=== PATIENT | male | born 1965 | race Caucasian/White ===

== ENCOUNTER 2018-06-06 20:29 | Inpatient (IN) | payer MEDICAID, OTHER ==
[2018-06-06 21:58] LABS: ADD MAN DIFF? NO
[2018-06-06 22:04] LABS: BASOPHILS % 0.2 % (0.0-2.0); EOSINOPHILS % 0.1 % (0.0-7.0); HEMATOCRIT 30.1 % (42.0-52.0); HEMOGLOBIN 10.5 g/dl (14.0-18.0); LYMPHOCYTES # 0.8 10^3/ul (0.8-2.9); LYMPHOCYTES % 7.7 % (15.0-51.0); MEAN CORPUSCULAR HEMOGLOBIN 28.4 pg (29.0-33.0); MEAN CORPUSCULAR HGB CONC 34.9 g/dl (32.0-37.0); MEAN CORPUSCULAR VOLUME 81.4 fl (82.0-101.0); MEAN PLATELET VOLUME 11.1 fl (7.4-10.4); MONOCYTE # 0.4 10^3/ul (0.3-0.9); MONOCYTES % 3.9 % (0.0-11.0); NEUTROPHIL # 9.2 10^3/ul (1.6-7.5); NEUTROPHILS % 87.3 % (39.0-77.0); PLATELET COUNT 199 10^3/UL (140-415); RED CELL DISTRIBUTION WIDTH 14.5 % (11.5-14.5)
[2018-06-06 22:04] LABS: WHITE BLOOD COUNT 10.6 10^3/ul (4.8-10.8)
[2018-06-06 22:21] LABS: ADD UMIC YES; UR ASCORBIC ACID NEGATIVE (NEGATIVE); UR BILIRUBIN (Dip) NEGATIVE (NEGATIVE); UR BLOOD (Dip) 2+ mg/dL (NEGATIVE); UR CLARITY SLIGHTLY CLOUDY (CLEAR); UR COLOR YELLOW (YELLOW); UR GLUCOSE (Dip) 3+ mg/dL (NEGATIVE); UR KETONES (Dip) 1+ mg/dL (NEGATIVE); UR LEUKOCYTE ESTERASE (Dip) NEGATIVE Leu/ul (NEGATIVE); UR MUCUS FEW /HPF (NONE SEEN); UR NITRITE (Dip) NEGATIVE (NEGATIVE); UR RBC 17 /HPF (0-5); UR SPECIFIC GRAVITY (Dip) 1.018 (1.003-1.030); UR TOTAL PROTEIN (Dip) 3+ mg/dl (NEGATIVE); UR UROBILINOGEN (Dip) NEGATIVE (NEGATIVE); UR WBC 6 /HPF (0-5)
[2018-06-06 22:23] LABS: ALANINE AMINOTRANSFERASE 28 IU/L (13-69); ALBUMIN 3.2 g/dl (3.3-4.9); ALBUMIN/GLOBULIN RATIO 1.18; ALKALINE PHOSPHATASE 171 IU/L (42-121); ANION GAP 16 (5-13); ASPARTATE AMINO TRANSFERASE 38 IU/L (15-46); BILIRUBIN,INDIRECT 0.2 mg/dl (0-1.1); BILIRUBIN,TOTAL 0.2 mg/dl (0.2-1.3); BLOOD UREA NITROGEN 68 mg/dl (7-20); CALCIUM 8.4 mg/dl (8.4-10.2); CARBON DIOXIDE 13 mmol/L (21-31); CHLORIDE 105 mmol/L (97-110); CREATININE 9.97 mg/dl (0.61-1.24); Estimated GFR 5 mL/min (>60); GLUCOSE 314 mg/dl (70-220); POTASSIUM 4.2 mmol/L (3.5-5.1); SODIUM 134 mmol/L (135-144); TOTAL PROTEIN 5.9 g/dl (6.1-8.1)
[2018-06-06 22:24] LABS: INR 1.01; PROTIME 13.4 Sec (11.9-14.9)
[2018-06-06 22:25] LABS: PARTIAL THROMBOPLASTIN TIME 26.4 Sec (23.0-35.0)
[2018-06-06 22:33] LABS: TROPONIN-I 0.035 ng/ml (0.000-0.120)
[2018-06-07] MEDS: ONDANSETRON 4 MG INJ IV ×2 (00:23→16:28)
[2018-06-07] MEDS: HYDROmorphONE 1 MG/ML SYG IV (00:24)
[2018-06-07] MEDS ORDERED: ONDANSETRON 4 MG INJ IV (00:30)
[2018-06-07] MEDS ORDERED: DEXTROSE 50% 50 ML SYRINGE IV ×2 (00:30)
[2018-06-07] MEDS ORDERED: GLUCOSE GEL 15 GRAM TUBE BUCCAL (00:30)
[2018-06-07] MEDS ORDERED: GLUCOSE GEL 15 GRAM TUBE PO ×2 (00:30)
[2018-06-07] MEDS ORDERED: morphine 2 MG INJ IV (00:30)
[2018-06-07] MEDS ORDERED: GLUCAGON 1 MG INJ IM (00:30)
[2018-06-07] MEDS ORDERED: ACETAMINOPHEN 325 MG TAB PO (00:30)
[2018-06-07] MEDS ORDERED: NACL 0.9% 3 ML SYG IV (00:30)
[2018-06-07] MEDS: FUROSEMIDE 40 MG INJ IV (00:35)
[2018-06-07] MEDS: ACCU-CHEK XX (01:41)
[2018-06-07] MEDS: INSULIN GLARGINE [LANTus] (100 UNITS/ML) SYG SC ×2 (01:41→20:32)
[2018-06-07] MEDS: PANTOPRAZOLE IV 80 MG in SOD CHLORIDE 0.9% 100 ML IV ×3 (01:44→20:33)
[2018-06-07] MEDS: PANTOPRAZOLE IV 80 MG in SOD CHLORIDE 0.9% 100 ML IVPB (01:44)
[2018-06-07 04:44] LABS: ADD UMIC YES; UR ASCORBIC ACID NEGATIVE (NEGATIVE); UR BACTERIA FEW /HPF (NONE SEEN); UR BILIRUBIN (Dip) NEGATIVE (NEGATIVE); UR BLOOD (Dip) 1+ mg/dL (NEGATIVE); UR CLARITY SLIGHTLY CLOUDY (CLEAR); UR COLOR YELLOW (YELLOW); UR GLUCOSE (Dip) 3+ mg/dL (NEGATIVE); UR KETONES (Dip) TRACE mg/dL (NEGATIVE); UR LEUKOCYTE ESTERASE (Dip) NEGATIVE Leu/ul (NEGATIVE); UR NITRITE (Dip) NEGATIVE (NEGATIVE); UR RBC 4 /HPF (0-5); UR SPECIFIC GRAVITY (Dip) 1.018 (1.003-1.030); UR TOTAL PROTEIN (Dip) 3+ mg/dl (NEGATIVE); UR UROBILINOGEN (Dip) NEGATIVE (NEGATIVE); UR WBC 3 /HPF (0-5)
[2018-06-07 04:45] LABS: SODIUM,URINE RANDOM 41 mmol/L (30-90)
[2018-06-07 04:49] LABS: CREATININE,URINE RANDOM 85.17 mg/dl (20-370)
[2018-06-07] MEDS: HEPARIN 5,000 UNIT/1 ML VIAL SC (05:13)
[2018-06-07 05:42] LABS: HAAIG REFLEX REFLEX FILED
[2018-06-07 06:24] LABS: IRON 77 ug/dl (35-150)
[2018-06-07 06:33] LABS: % IRON SATURATION 38 % SAT (22-52); TOTAL IRON BINDING CAPACITY 201 ug/dl (241-421)
[2018-06-07 06:58] LABS: HEPATITIS B SURFACE ANTIGEN NEGATIVE (NEGATIVE)
[2018-06-07 07:00] LABS: PROTEIN URINE > 600.0 mg/dl (0.0-11.9); PROTEIN/CREAT RATIO 7.04 RATIO
[2018-06-07 07:05] LABS: HIV 1&2 ANTIBODY NEGATIVE (NEGATIVE)
[2018-06-07 07:14] LABS: HEPATITIS B SURFACE ANTIBODY NEGATIVE (NEGATIVE)
[2018-06-07 07:15] LABS: HEPATITIS B CORE ANTIBODY NEGATIVE (NEGATIVE); HEPATITIS C VIRAL ANTIBODY NEGATIVE (NEGATIVE)
[2018-06-07] MEDS: hydrALAzine 20 MG INJ IV (07:50)
[2018-06-07 09:00] LABS: CHOLESTEROL 304 mg/dl (100-200)
[2018-06-07 09:00] LABS: CHOL/HDL RATIO 7.4 RATIO; HDL CHOLESTEROL 41 mg/dl (28-71); LDL CHOLESTEROL,CALCULATED 204 mg/dl; TRIGLYCERIDES 293 mg/dl (0-149)
[2018-06-07 09:08] LABS: HEMOGLOBIN A1C 8.2 % (0-5.9)
[2018-06-07] MEDS: NIFEdipine (XL) 60 MG TAB PO ×2 (09:53→20:25)
[2018-06-07] MEDS: METOLAZONE 2.5 MG TAB PO (09:55)
[2018-06-07] MEDS: INSULIN ASPART [NOVOLOG] 3 ML PEN SC ×6 (10:17→20:34)
[2018-06-07 11:02] LABS: HAAIG REFLEX REFLEX FILED
[2018-06-07 11:38] LABS: COMPLEMENT C3 76 mg/dl (88-165); COMPLEMENT C4 27 mg/dl (14-44)
[2018-06-07] MEDS ORDERED: INSULIN ASPART [NOVOLOG] 3 ML PEN SC (11:50)
[2018-06-07 12:01] LABS: HEPATITIS B SURFACE ANTIGEN NEGATIVE (NEGATIVE)
[2018-06-07 12:19] LABS: HEPATITIS B CORE ANTIBODY NEGATIVE (NEGATIVE); HEPATITIS C VIRAL ANTIBODY NEGATIVE (NEGATIVE)
[2018-06-07] MEDS: METOCLOPRAMIDE 10 MG INJ IV ×2 (13:00→17:38)
[2018-06-07 17:21] LABS: RHEUMATOID FACTOR NEGATIVE (NEGATIVE)
[2018-06-07 17:21] LABS: RAPID PLASMA REAGIN NONREACTIVE (NR)
[2018-06-07] MEDS: ATORVASTATIN 80 MG TAB PO (20:25)
[2018-06-07 21:57] LABS: SITE Left Upper Forearm
[2018-06-08] MEDS: METOCLOPRAMIDE 10 MG INJ IV ×4 (00:20→17:01)
[2018-06-08] MEDS: ACCU-CHEK XX ×2 (02:00)
[2018-06-08] MEDS: PANTOPRAZOLE IV 80 MG in SOD CHLORIDE 0.9% 100 ML IV ×2 (06:36→16:22)
[2018-06-08 07:03] LABS: ADD MAN DIFF? NO
[2018-06-08 07:07] LABS: BASOPHILS % 0.2 % (0.0-2.0); EOSINOPHILS % 0.5 % (0.0-7.0); LYMPHOCYTES # 1.4 10^3/ul (0.8-2.9); LYMPHOCYTES % 17.6 % (15.0-51.0); MEAN CORPUSCULAR HEMOGLOBIN 28.2 pg (29.0-33.0); MEAN CORPUSCULAR HGB CONC 34.6 g/dl (32.0-37.0); MEAN CORPUSCULAR VOLUME 81.5 fl (82.0-101.0); MEAN PLATELET VOLUME 12.1 fl (7.4-10.4); MONOCYTE # 0.6 10^3/ul (0.3-0.9); MONOCYTES % 7.3 % (0.0-11.0); NEUTROPHILS % 73.9 % (39.0-77.0); PLATELET COUNT 211 10^3/UL (140-415); RED BLOOD COUNT 3.19 10^6/ul (4.70-6.10); RED CELL DISTRIBUTION WIDTH 14.7 % (11.5-14.5)
[2018-06-08 07:07] LABS: WHITE BLOOD COUNT 8.1 10^3/ul (4.8-10.8)
[2018-06-08 07:30] LABS: ANION GAP 14 (5-13); BLOOD UREA NITROGEN 72 mg/dl (7-20); CALCIUM 7.8 mg/dl (8.4-10.2); CARBON DIOXIDE 13 mmol/L (21-31); CHLORIDE 111 mmol/L (97-110); CREATININE 10.47 mg/dl (0.61-1.24); Estimated GFR 5 mL/min (>60); GLUCOSE 91 mg/dl (70-220); MAGNESIUM 2.5 mg/dl (1.7-2.5); PHOSPHORUS 7.9 mg/dl (2.5-4.9); POTASSIUM 3.1 mmol/L (3.5-5.1); SODIUM 138 mmol/L (135-144)
[2018-06-08 07:32] LABS: LIPASE 43 U/L (23-300)
[2018-06-08] MEDS: INSULIN ASPART [NOVOLOG] 3 ML PEN SC ×7 (07:50→20:51)
[2018-06-08] MEDS: NIFEdipine (XL) 60 MG TAB PO ×2 (08:10→20:33)
[2018-06-08] MEDS: METOLAZONE 2.5 MG TAB PO (08:10)
[2018-06-08] MEDS: MULTIVIT/CA CARB/B CMPLX/FA TAB PO (09:00)
[2018-06-08] MEDS: CHOLECALCIFEROL 2,000 UNIT CAP PO (09:00)
[2018-06-08] MEDS: POTASSIUM CHLORIDE (SR) 20 MEQ TAB PO (09:08)
[2018-06-08] MEDS: CEFAZOLIN 1 GM/50 ML (PMX) 50 ML IVPB (11:13)
[2018-06-08] MEDS: SEVELAMER CARBONATE 800 MG TABLET PO ×2 (11:50→16:57)
[2018-06-08] MEDS: LIDOCAINE 1% (MDV) 20 ML INJ (11:51)
[2018-06-08] MEDS: FENTAnyl 50 MCG/ML VIAL (11:51)
[2018-06-08] MEDS: HEPARIN 1000 UNITS/ML 10 ML INJ (12:07)
[2018-06-08] MEDS: EPOETIN 10000 UNITS/1 ML INJ (ESRD) SC (16:55)
[2018-06-08] MEDS: HEPARIN 1000 UNITS/ML 10 ML INJ CATHETER (19:52)
[2018-06-08] MEDS: ATORVASTATIN 80 MG TAB PO (20:32)
[2018-06-08] MEDS: INSULIN GLARGINE [LANTus] (100 UNITS/ML) SYG SC (20:42)
[2018-06-09] MEDS: ACCU-CHEK XX (02:00)
[2018-06-09] MEDS: PANTOPRAZOLE IV 80 MG in SOD CHLORIDE 0.9% 100 ML IV (02:40)
[2018-06-09] MEDS: INSULIN ASPART [NOVOLOG] 3 ML PEN SC ×7 (07:55→21:11)
[2018-06-09] MEDS: METOLAZONE 2.5 MG TAB PO (08:13)
[2018-06-09] MEDS: MULTIVIT/CA CARB/B CMPLX/FA TAB PO (08:14)
[2018-06-09] MEDS: SEVELAMER CARBONATE 800 MG TABLET PO ×3 (08:14→17:26)
[2018-06-09] MEDS: NIFEdipine (XL) 60 MG TAB PO ×2 (08:14→20:16)
[2018-06-09] MEDS: CHOLECALCIFEROL 2,000 UNIT CAP PO (08:14)
[2018-06-09 08:44] LABS: ADD MAN DIFF? NO
[2018-06-09 08:58] LABS: BASOPHILS % 0.3 % (0.0-2.0); EOSINOPHILS % 0.3 % (0.0-7.0); HEMATOCRIT 27.4 % (42.0-52.0); HEMOGLOBIN 9.4 g/dl (14.0-18.0); LYMPHOCYTES # 1.7 10^3/ul (0.8-2.9); LYMPHOCYTES % 16.7 % (15.0-51.0); MEAN CORPUSCULAR HEMOGLOBIN 28.3 pg (29.0-33.0); MEAN CORPUSCULAR HGB CONC 34.3 g/dl (32.0-37.0); MEAN CORPUSCULAR VOLUME 82.5 fl (82.0-101.0); MEAN PLATELET VOLUME 12.1 fl (7.4-10.4); MONOCYTE # 0.9 10^3/ul (0.3-0.9); MONOCYTES % 8.5 % (0.0-11.0); NEUTROPHIL # 7.4 10^3/ul (1.6-7.5); NEUTROPHILS % 73.6 % (39.0-77.0); PLATELET COUNT 239 10^3/UL (140-415); RED BLOOD COUNT 3.32 10^6/ul (4.70-6.10); RED CELL DISTRIBUTION WIDTH 14.9 % (11.5-14.5)
[2018-06-09 09:18] LABS: ANION GAP 11 (5-13); BLOOD UREA NITROGEN 47 mg/dl (7-20); CALCIUM 7.6 mg/dl (8.4-10.2); CARBON DIOXIDE 19 mmol/L (21-31); CHLORIDE 107 mmol/L (97-110); CREATININE 7.79 mg/dl (0.61-1.24); Estimated GFR 7 mL/min (>60); GLUCOSE 64 mg/dl (70-220); MAGNESIUM 2.3 mg/dl (1.7-2.5); PHOSPHORUS 4.9 mg/dl (2.5-4.9); SODIUM 137 mmol/L (135-144)
[2018-06-09 10:02] LABS: POTASSIUM 3.2 mmol/L (3.5-5.1)
[2018-06-09 13:17] LABS: MYELOPEROXIDASE ANTIBODY <1.0 AI; PROTEINASE-3 ANTIBODY <1.0 AI
[2018-06-09 14:07] LABS: ANA SCREEN NEGATIVE (NEGATIVE)
[2018-06-09 17:12] LABS: ANTI-DNA (DOUBLE STRANDED) 106 U/mL (< 301)
[2018-06-09] MEDS: HEPARIN 1000 UNITS/ML 10 ML INJ CATHETER (17:58)
[2018-06-09] MEDS: ATORVASTATIN 80 MG TAB PO (20:16)
[2018-06-09] MEDS: PANTOPRAZOLE (EC) 40 MG TAB PO (20:17)
[2018-06-09] MEDS: INSULIN GLARGINE [LANTus] (100 UNITS/ML) SYG SC (21:11)
[2018-06-09 22:36] LABS: FORTY EIGHT HOUR READING 0 mm (0-9)
[2018-06-10] MEDS: ACCU-CHEK XX (01:45)
[2018-06-10 06:27] LABS: ADD MAN DIFF? NO
[2018-06-10 06:31] LABS: BASOPHILS % 0.4 % (0.0-2.0); EOSINOPHILS # 0.1 10^3/ul (0.0-0.5); EOSINOPHILS % 1.6 % (0.0-7.0); HEMATOCRIT 24.1 % (42.0-52.0); HEMOGLOBIN 8.3 g/dl (14.0-18.0); LYMPHOCYTES # 1.8 10^3/ul (0.8-2.9); LYMPHOCYTES % 24.4 % (15.0-51.0); MEAN CORPUSCULAR HEMOGLOBIN 28.7 pg (29.0-33.0); MEAN CORPUSCULAR HGB CONC 34.4 g/dl (32.0-37.0); MEAN CORPUSCULAR VOLUME 83.4 fl (82.0-101.0); MEAN PLATELET VOLUME 11.9 fl (7.4-10.4); MONOCYTE # 0.9 10^3/ul (0.3-0.9); MONOCYTES % 11.5 % (0.0-11.0); NEUTROPHIL # 4.7 10^3/ul (1.6-7.5); NEUTROPHILS % 61.7 % (39.0-77.0); PLATELET COUNT 177 10^3/UL (140-415); RED BLOOD COUNT 2.89 10^6/ul (4.70-6.10); RED CELL DISTRIBUTION WIDTH 14.7 % (11.5-14.5)
[2018-06-10 06:31] LABS: WHITE BLOOD COUNT 7.6 10^3/ul (4.8-10.8)
[2018-06-10 07:00] LABS: ANION GAP 7 (5-13); BLOOD UREA NITROGEN 33 mg/dl (7-20); CALCIUM 7.1 mg/dl (8.4-10.2); CARBON DIOXIDE 29 mmol/L (21-31); CHLORIDE 101 mmol/L (97-110); CREATININE 5.98 mg/dl (0.61-1.24); Estimated GFR 10 mL/min (>60); GLUCOSE 139 mg/dl (70-220); PHOSPHORUS 3.6 mg/dl (2.5-4.9); POTASSIUM 3.6 mmol/L (3.5-5.1); SODIUM 137 mmol/L (135-144)
[2018-06-10] MEDS: MULTIVIT/CA CARB/B CMPLX/FA TAB PO (08:08)
[2018-06-10] MEDS: PANTOPRAZOLE (EC) 40 MG TAB PO ×2 (08:08→22:24)
[2018-06-10] MEDS: METOLAZONE 2.5 MG TAB PO (08:09)
[2018-06-10] MEDS: SEVELAMER CARBONATE 800 MG TABLET PO ×3 (08:09→18:03)
[2018-06-10] MEDS: CHOLECALCIFEROL 2,000 UNIT CAP PO (08:10)
[2018-06-10] MEDS: INSULIN ASPART [NOVOLOG] 3 ML PEN SC ×6 (08:15→22:23)
[2018-06-10] MEDS: EPOETIN 10000 UNITS/1 ML INJ (ESRD) SC (18:05)
[2018-06-10 18:46] LABS: PTH CALCIUM 7.7 mg/dL (8.6-10.3)
[2018-06-10 19:37] LABS: ANCA SCREEN NEGATIVE (NEGATIVE)
[2018-06-10] MEDS: HEPARIN 1000 UNITS/ML 10 ML INJ CATHETER (21:56)
[2018-06-10] MEDS: INSULIN GLARGINE [LANTus] (100 UNITS/ML) SYG SC (22:23)
[2018-06-10] MEDS: ATORVASTATIN 80 MG TAB PO (22:24)
[2018-06-10] MEDS: NIFEdipine (XL) 60 MG TAB PO (22:26)
[2018-06-10 22:29] LABS: SEVENTY TWO HOUR READING 0 mm (0-9)
[2018-06-11] MEDS: ACCU-CHEK XX (02:25)
[2018-06-11] MEDS: hydrALAzine 20 MG INJ IV (04:15)
[2018-06-11 06:22] LABS: ADD MAN DIFF? NO
[2018-06-11 06:30] LABS: WHITE BLOOD COUNT 7.5 10^3/ul (4.8-10.8)
[2018-06-11 06:30] LABS: BASOPHILS % 0.3 % (0.0-2.0); EOSINOPHILS # 0.1 10^3/ul (0.0-0.5); EOSINOPHILS % 1.7 % (0.0-7.0); HEMATOCRIT 23.5 % (42.0-52.0); HEMOGLOBIN 8.1 g/dl (14.0-18.0); LYMPHOCYTES # 1.5 10^3/ul (0.8-2.9); LYMPHOCYTES % 20.3 % (15.0-51.0); MEAN CORPUSCULAR HEMOGLOBIN 28.8 pg (29.0-33.0); MEAN CORPUSCULAR HGB CONC 34.5 g/dl (32.0-37.0); MEAN CORPUSCULAR VOLUME 83.6 fl (82.0-101.0); MEAN PLATELET VOLUME 12.4 fl (7.4-10.4); MONOCYTE # 0.7 10^3/ul (0.3-0.9); MONOCYTES % 9.4 % (0.0-11.0); NEUTROPHIL # 5.1 10^3/ul (1.6-7.5); NEUTROPHILS % 67.8 % (39.0-77.0); PLATELET COUNT 176 10^3/UL (140-415); RED BLOOD COUNT 2.81 10^6/ul (4.70-6.10); RED CELL DISTRIBUTION WIDTH 14.6 % (11.5-14.5)
[2018-06-11 07:06] LABS: ANION GAP 7 (5-13); BLOOD UREA NITROGEN 26 mg/dl (7-20); CALCIUM 7.2 mg/dl (8.4-10.2); CARBON DIOXIDE 29 mmol/L (21-31); CHLORIDE 100 mmol/L (97-110); CREATININE 5.01 mg/dl (0.61-1.24); Estimated GFR 12 mL/min (>60); GLUCOSE 157 mg/dl (70-220); MAGNESIUM 1.9 mg/dl (1.7-2.5); PHOSPHORUS 3.3 mg/dl (2.5-4.9); POTASSIUM 3.6 mmol/L (3.5-5.1); SODIUM 136 mmol/L (135-144)
[2018-06-11] MEDS: SEVELAMER CARBONATE 800 MG TABLET PO ×3 (08:15→17:42)
[2018-06-11] MEDS: MULTIVIT/CA CARB/B CMPLX/FA TAB PO (08:15)
[2018-06-11] MEDS: METOLAZONE 2.5 MG TAB PO (08:15)
[2018-06-11] MEDS: CHOLECALCIFEROL 2,000 UNIT CAP PO (08:16)
[2018-06-11] MEDS: NIFEdipine (XL) 60 MG TAB PO ×2 (08:16→20:56)
[2018-06-11] MEDS: PANTOPRAZOLE (EC) 40 MG TAB PO ×2 (08:20→20:56)
[2018-06-11] MEDS: INSULIN ASPART [NOVOLOG] 3 ML PEN SC ×4 (08:25→20:58)
[2018-06-11 08:36] LABS: PTH INTACT 272 pg/mL (14-64)
[2018-06-11] MEDS: ATORVASTATIN 80 MG TAB PO (20:56)
[2018-06-11] MEDS: INSULIN GLARGINE [LANTus] (100 UNITS/ML) SYG SC (20:59)
[2018-06-12] MEDS: ACCU-CHEK XX (02:00)
[2018-06-12] MEDS: hydrALAzine 20 MG INJ IV (02:02)
[2018-06-12] MEDS: INSULIN ASPART [NOVOLOG] 3 ML PEN SC ×4 (07:53→21:00)
[2018-06-12] MEDS: METOLAZONE 2.5 MG TAB PO (08:25)
[2018-06-12] MEDS: MULTIVIT/CA CARB/B CMPLX/FA TAB PO (08:25)
[2018-06-12] MEDS: SEVELAMER CARBONATE 800 MG TABLET PO ×3 (08:25→17:55)
[2018-06-12] MEDS: PANTOPRAZOLE (EC) 40 MG TAB PO ×2 (08:25→21:08)
[2018-06-12] MEDS: CHOLECALCIFEROL 2,000 UNIT CAP PO (08:25)
[2018-06-12] MEDS: NIFEdipine (XL) 60 MG TAB PO ×2 (08:26→21:07)
[2018-06-12] MEDS: ACETAMINOPHEN 325 MG TAB PO (12:07)
[2018-06-12] MEDS: ONDANSETRON 4 MG TAB PO (12:08)
[2018-06-12] MEDS: EPOETIN 10000 UNITS/1 ML INJ (ESRD) SC (17:00)
[2018-06-12] MEDS: HEPARIN 1000 UNITS/ML 10 ML INJ CATHETER (20:04)
[2018-06-12] MEDS: ATORVASTATIN 80 MG TAB PO (21:07)
[2018-06-12] MEDS: INSULIN GLARGINE [LANTus] (100 UNITS/ML) SYG SC (21:14)
[2018-06-12] MEDS: EPOETIN ALFA-EPBX (ESRD) 10,000 UNIT/ML VIAL SC (21:51)
[2018-06-13] MEDS: ACCU-CHEK XX (01:35)
[2018-06-13 06:47] LABS: ANION GAP 5 (5-13); BLOOD UREA NITROGEN 23 mg/dl (7-20); CALCIUM 7.9 mg/dl (8.4-10.2); CARBON DIOXIDE 32 mmol/L (21-31); CHLORIDE 100 mmol/L (97-110); Estimated GFR 14 mL/min (>60); GLUCOSE 140 mg/dl (70-220); POTASSIUM 4.1 mmol/L (3.5-5.1); SODIUM 137 mmol/L (135-144)
[2018-06-13] MEDS: INSULIN ASPART [NOVOLOG] 3 ML PEN SC ×4 (07:59→22:58)
[2018-06-13] MEDS: PROPOFOL 20 ML (08:30)
[2018-06-13] MEDS: SEVELAMER CARBONATE 800 MG TABLET PO ×3 (08:31→18:32)
[2018-06-13] MEDS: LIDOCAINE 2% (SDV) 5 ML INJ (08:31)
[2018-06-13] MEDS: CHOLECALCIFEROL 2,000 UNIT CAP PO (08:32)
[2018-06-13] MEDS: NIFEdipine (XL) 60 MG TAB PO (08:32)
[2018-06-13] MEDS: MULTIVIT/CA CARB/B CMPLX/FA TAB PO (08:32)
[2018-06-13] MEDS: PANTOPRAZOLE (EC) 40 MG TAB PO ×2 (08:32→21:21)
[2018-06-13] MEDS: METOLAZONE 2.5 MG TAB PO (08:32)
[2018-06-13] MEDS: ERGOCALCIFEROL 50,000 UNIT CAP PO (18:32)
[2018-06-13] MEDS: ATORVASTATIN 80 MG TAB PO (21:20)
[2018-06-13] MEDS: LOSARTAN 50 MG TAB PO (21:21)
[2018-06-13] MEDS: INSULIN GLARGINE [LANTus] (100 UNITS/ML) SYG SC (21:25)
[2018-06-14] MEDS: ZOLPIDEM 5 MG TAB PO (01:52)
[2018-06-14] MEDS: ACCU-CHEK XX (02:00)
[2018-06-14] MEDS: INSULIN ASPART [NOVOLOG] 3 ML PEN SC ×4 (08:00→20:48)
[2018-06-14] MEDS: PANTOPRAZOLE (EC) 40 MG TAB PO ×2 (08:38→20:44)
[2018-06-14] MEDS: MULTIVIT/CA CARB/B CMPLX/FA TAB PO (08:38)
[2018-06-14] MEDS: CHOLECALCIFEROL 2,000 UNIT CAP PO (08:38)
[2018-06-14] MEDS: SEVELAMER CARBONATE 800 MG TABLET PO ×3 (08:38→17:59)
[2018-06-14] MEDS: NIFEdipine (XL) 60 MG TAB PO (08:39)
[2018-06-14] MEDS: METOLAZONE 2.5 MG TAB PO (08:42)
[2018-06-14] MEDS: ATORVASTATIN 80 MG TAB PO (20:44)
[2018-06-14] MEDS: LOSARTAN 50 MG TAB PO (20:44)
[2018-06-14] MEDS: INSULIN GLARGINE [LANTus] (100 UNITS/ML) SYG SC (20:47)
[2018-06-15] MEDS: ACCU-CHEK XX (02:41)
[2018-06-15] MEDS: INSULIN ASPART [NOVOLOG] 3 ML PEN SC ×4 (08:00→20:17)
[2018-06-15] MEDS: PANTOPRAZOLE (EC) 40 MG TAB PO ×2 (08:27→20:11)
[2018-06-15] MEDS: SEVELAMER CARBONATE 800 MG TABLET PO ×3 (08:27→17:47)
[2018-06-15] MEDS: NIFEdipine (XL) 60 MG TAB PO (08:27)
[2018-06-15] MEDS: CHOLECALCIFEROL 2,000 UNIT CAP PO (08:27)
[2018-06-15] MEDS: MULTIVIT/CA CARB/B CMPLX/FA TAB PO (08:27)
[2018-06-15] MEDS: METOLAZONE 2.5 MG TAB PO (08:28)
[2018-06-15] MEDS ORDERED: NIFEdipine (XL) 30 MG TAB PO (11:30)
[2018-06-15] MEDS: HEPARIN 1000 UNITS/ML 10 ML INJ CATHETER (13:34)
[2018-06-15] MEDS: hydrALAzine 20 MG INJ IV (14:34)
[2018-06-15] MEDS: EPOETIN ALFA-EPBX (ESRD) 10,000 UNIT/ML VIAL SC (17:48)
[2018-06-15] MEDS: LOSARTAN 50 MG TAB PO (20:11)
[2018-06-15] MEDS: ATORVASTATIN 80 MG TAB PO (20:11)
[2018-06-15] MEDS: INSULIN GLARGINE [LANTus] (100 UNITS/ML) SYG SC (20:17)
[2018-06-16] MEDS: hydrALAzine 20 MG INJ IV (01:28)
[2018-06-16] MEDS: ACCU-CHEK XX (01:53)
[2018-06-16 05:28] LABS: ADD MAN DIFF? NO
[2018-06-16 05:37] LABS: BASOPHILS % 0.1 % (0.0-2.0); EOSINOPHILS # 0.3 10^3/ul (0.0-0.5); EOSINOPHILS % 3.2 % (0.0-7.0); HEMATOCRIT 27.4 % (42.0-52.0); HEMOGLOBIN 9.1 g/dl (14.0-18.0); LYMPHOCYTES # 1.5 10^3/ul (0.8-2.9); LYMPHOCYTES % 17.8 % (15.0-51.0); MEAN CORPUSCULAR HEMOGLOBIN 28.7 pg (29.0-33.0); MEAN CORPUSCULAR HGB CONC 33.2 g/dl (32.0-37.0); MEAN CORPUSCULAR VOLUME 86.4 fl (82.0-101.0); MEAN PLATELET VOLUME 11.8 fl (7.4-10.4); MONOCYTE # 0.8 10^3/ul (0.3-0.9); MONOCYTES % 9.7 % (0.0-11.0); NEUTROPHIL # 5.7 10^3/ul (1.6-7.5); NEUTROPHILS % 68.8 % (39.0-77.0); PLATELET COUNT 327 10^3/UL (140-415); RED BLOOD COUNT 3.17 10^6/ul (4.70-6.10); RED CELL DISTRIBUTION WIDTH 14.7 % (11.5-14.5)
[2018-06-16 05:37] LABS: WHITE BLOOD COUNT 8.3 10^3/ul (4.8-10.8)
[2018-06-16 06:23] LABS: ANION GAP 5 (5-13); BLOOD UREA NITROGEN 31 mg/dl (7-20); CALCIUM 8.2 mg/dl (8.4-10.2); CARBON DIOXIDE 34 mmol/L (21-31); CHLORIDE 97 mmol/L (97-110); CREATININE 4.56 mg/dl (0.61-1.24); Estimated GFR 14 mL/min (>60); GLUCOSE 100 mg/dl (70-220); PHOSPHORUS 2.7 mg/dl (2.5-4.9); POTASSIUM 4.1 mmol/L (3.5-5.1); SODIUM 136 mmol/L (135-144)
[2018-06-16] MEDS: SEVELAMER CARBONATE 800 MG TABLET PO ×3 (08:00→18:15)
[2018-06-16] MEDS: INSULIN ASPART [NOVOLOG] 3 ML PEN SC ×4 (08:00→21:00)
[2018-06-16] MEDS: ACETAMINOPHEN 325 MG TAB PO (08:46)
[2018-06-16] MEDS: CHOLECALCIFEROL 2,000 UNIT CAP PO (08:47)
[2018-06-16] MEDS: MULTIVIT/CA CARB/B CMPLX/FA TAB PO (08:47)
[2018-06-16] MEDS: PANTOPRAZOLE (EC) 40 MG TAB PO ×2 (08:47→21:00)
[2018-06-16] MEDS: METOLAZONE 2.5 MG TAB PO (08:48)
[2018-06-16] MEDS: NIFEdipine (XL) 60 MG TAB PO (08:48)
[2018-06-16] MEDS ORDERED: NIFEdipine (XL) 60 MG TAB PO (09:00)
[2018-06-16] MEDS: ATORVASTATIN 80 MG TAB PO (21:00)
[2018-06-16] MEDS: LOSARTAN 50 MG TAB PO (21:00)
[2018-06-16] MEDS: INSULIN GLARGINE [LANTus] (100 UNITS/ML) SYG SC (21:12)
[2018-06-17] MEDS: ACCU-CHEK XX (01:38)
[2018-06-17] MEDS: NIFEdipine (XL) 60 MG TAB PO (09:00)
[2018-06-17] MEDS: MULTIVIT/CA CARB/B CMPLX/FA TAB PO (09:07)
[2018-06-17] MEDS: PANTOPRAZOLE (EC) 40 MG TAB PO ×2 (09:07→21:12)
[2018-06-17] MEDS: CHOLECALCIFEROL 2,000 UNIT CAP PO (09:07)
[2018-06-17] MEDS: INSULIN ASPART [NOVOLOG] 3 ML PEN SC ×4 (09:10→21:14)
[2018-06-17] MEDS: SEVELAMER CARBONATE 800 MG TABLET PO ×3 (09:10→18:00)
[2018-06-17 12:52] LABS: NIL 0.03 IU/mL; QUANTIFERON(R)-TB GOLD POSITIVE (NEGATIVE); TB-NIL 2.16 IU/mL; TB2-NIL 1.92 IU/mL
[2018-06-17] MEDS: HEPARIN 1000 UNITS/ML 10 ML INJ CATHETER (13:14)
[2018-06-17] MEDS: EPOETIN ALFA-EPBX (ESRD) 10,000 UNIT/ML VIAL SC (18:14)
[2018-06-17] MEDS: ATORVASTATIN 80 MG TAB PO (21:12)
[2018-06-17] MEDS: LOSARTAN 50 MG TAB PO (21:12)
[2018-06-17] MEDS: INSULIN GLARGINE [LANTus] (100 UNITS/ML) SYG SC (21:14)
[2018-06-18] MEDS: ACCU-CHEK XX (02:30)
[2018-06-18] MEDS: NIFEdipine (XL) 60 MG TAB PO (08:29)
[2018-06-18] MEDS: PANTOPRAZOLE (EC) 40 MG TAB PO ×2 (08:29→20:53)
[2018-06-18] MEDS: SEVELAMER CARBONATE 800 MG TABLET PO ×3 (08:29→17:25)
[2018-06-18] MEDS: CHOLECALCIFEROL 2,000 UNIT CAP PO (08:29)
[2018-06-18] MEDS: MULTIVIT/CA CARB/B CMPLX/FA TAB PO (08:29)
[2018-06-18] MEDS: INSULIN ASPART [NOVOLOG] 3 ML PEN SC ×4 (08:33→20:45)
[2018-06-18] MEDS: ATORVASTATIN 80 MG TAB PO (20:41)
[2018-06-18] MEDS: INSULIN GLARGINE [LANTus] (100 UNITS/ML) SYG SC (20:45)
[2018-06-18] MEDS: LOSARTAN 50 MG TAB PO (22:46)
[2018-06-19] MEDS: ACCU-CHEK XX (02:00)
[2018-06-19] MEDS: SEVELAMER CARBONATE 800 MG TABLET PO ×3 (08:00→18:06)
[2018-06-19] MEDS: INSULIN ASPART [NOVOLOG] 3 ML PEN SC ×2 (08:00→12:21)
[2018-06-19] MEDS: NIFEdipine (XL) 60 MG TAB PO (08:21)
[2018-06-19] MEDS: CHOLECALCIFEROL 2,000 UNIT CAP PO (08:22)
[2018-06-19] MEDS: MULTIVIT/CA CARB/B CMPLX/FA TAB PO (08:22)
[2018-06-19] MEDS: PANTOPRAZOLE (EC) 40 MG TAB PO (08:22)
[2018-06-19] MEDS: HEPARIN 1000 UNITS/ML 10 ML INJ CATHETER (16:31)
[2018-06-19] MEDS: EPOETIN ALFA-EPBX (ESRD) 10,000 UNIT/ML VIAL SC (18:06)
== END 2018-06-19 18:40 | disposition home or self-care (01) | DRG 673 ==
LOC: 2NE 06-10 13:20 → E/R 20:29 → TEL 06-07 00:15
PROC: 0JH63XZ Insertion of Tunneled Vascular Access Device into Chest Subcutaneous Tissue and Fascia, Percutaneous Approach (ICD-10-PCS; principal; 2018-06-08 13:48)
PROC: 0DB68ZX Excision of Stomach, Via Natural or Artificial Opening Endoscopic, Diagnostic (ICD-10-PCS; 2018-06-08 13:48)
PROC: 02H633Z Insertion of Infusion Device into Right Atrium, Percutaneous Approach (ICD-10-PCS; 2018-06-08 13:48)
PROC: B214YZZ Fluoroscopy of Right Heart using Other Contrast (ICD-10-PCS; 2018-06-08 13:48)
PROC: 5A1D70Z Performance of Urinary Filtration, Intermittent, Less than 6 Hours Per Day (ICD-10-PCS; 2018-06-08 13:48)
DX: I12.0 Hypertensive chronic kidney disease with stage 5 chronic kidney disease or end stage renal disease (principal); K29.01 Acute gastritis with bleeding; N18.6 End stage renal disease; N17.9 Acute kidney failure, unspecified; D62 Acute posthemorrhagic anemia; E87.1 Hypo-osmolality and hyponatremia; E87.2 Acidosis; N25.81 Secondary hyperparathyroidism of renal origin; K80.12 Calculus of gallbladder with acute and chronic cholecystitis without obstruction; K92.0 Hematemesis; E11.22 Type 2 diabetes mellitus with diabetic chronic kidney disease; E87.6 Hypokalemia; E78.5 Hyperlipidemia, unspecified; E55.9 Vitamin D deficiency, unspecified; I16.0 Hypertensive urgency; K57.90 Diverticulosis of intestine, part unspecified, without perforation or abscess without bleeding; R05 Cough; Z99.2 Dependence on renal dialysis; Z79.4 Long term (current) use of insulin
CPT/HCPCS: 36415; 36558; 71045; 71250; 74150; 76705; 76775; 76942; 78226; 80048; 80053; 80061; 81001; 81003; 82306; 82570; 82595; 82652; 82728; 82962; 83036; 83540; 83690; 83735; 83970; 84100; 84300; 84443; 84484; 85025; 85610; 85730; 86021; 86038; 86160; 86226; 86430; 86480; 86580; 86592; 86703; 86704; 86706; 86708; 86709; 86803; 86850; 86900; 86901; 87340; 88305; 88312; 90935; 99285-25